=== PATIENT | female | born 1975 | race Caucasian/White ===

== ENCOUNTER 2024-12-03 18:24 | Emergency (ER) | payer OTHER, SELFPAY ==
[2024-12-03 18:29] VITALS: BP 232/129; PULSE 78; RESP 18; TEMP 36.6; O2SAT 100; BMI 48.5
[2024-12-03 19:15] VITALS: PULSE 99; O2SAT 98
[2024-12-03 19:21] VITALS: BP 190/88; PULSE 96; O2SAT 97
[2024-12-03 19:39] VITALS: BP 197/80; PULSE 102; O2SAT 99
--- NOTE | 2024-12-03 19:49 | [facility].EDGENADL ---
Discharge Plan Disposition Chief Complaint: Eye Problems Referrals Follow up/Referrals: Joyce Nagel APRN [Primary Care Provider] - See instructions Activity Restrictions/Add. Instructions Additional Instructions/Restrictions: At this time it was felt you are safe to be discharged home. If new or worsening symptoms please do not hesitate to return the emergency department. Please apply the erythromycin ointment twice a day to your eyes as discussed for 5 days. Please call and schedule appoint with my eye care later this week with Dr. Kay to ensure things are headed in the right direction. As discussed for your blood pressure please follow-up with your family doctor this week as you will need blood pressure medicine very likely to get it to a more acceptable range but we did not need to work you up today. Clinical Impressions Clinical Impression: Corneal abrasion, Asymptomatic hypertension Print Language Print Language: Ch[place] Discharge ED Provider: Bert Hernandes General Adult HPI General Chief complaint: Eye Problems Stated complaint: AO 12/03/24 1400 scratch left eye Time Seen by Provider: 12/03/24 19:10 Mode of Arrival: Ambulatory Source of Information: Patient Description of Symptoms (Recalled from ER Triage Doc. by RN): Pt presents for evaluation of left eye injury. Pt states her grandson scratched her eye History of Present Illness HPI narrative: Patient is a 49-year-old female who does not have corrective vision who presents emergency department for evaluation of a scratched her left eye. Onset was acute just prior to arrival by a toddler. Left eye. No other acute complaints at this time. Please note that above description of symptoms, in this electronic medical record under categorization of recalled from ER triage doctor by RN are reflective of an initial nursing assessment, however, is not reflective of my full history and physical exam that was personally taken and clarified. Consequentially, this preceding description of symptoms, which may include the patient's categorized chief complaint in the EMR, do not reflect my personal clinical impression, and the ultimate description of history of present illness and patient stated complaints should be deferred to this section of the note. Unless stated otherwise or congruent with this section of the note, additional signs, symptoms, or incongruence should be interpreted as inaccurate with my clinical impression. [facility] Disclaimer: The information contained in this section may have been updated after the patient was seen, as this information can be updated by other users. Social History Smoking Status: Never smoker alcohol intake: never current occupational status: other Travel in the last 8 weeks: None ROS Obtained: Yes Systems reviewed as appropriate & no additional complaints except as documented Physical Exam General General appearance: alert and in no apparent distress Head Head exam: atraumatic and normocephalic Eye Eye exam: Present PERRL and EOMI ENT ENT exam: Present mucous membranes moist Neck Neck exam: Present normal inspection Chest Chest inspection: Present symmetric chest wall rise Respiratory Respiratory exam: Present normal lung sounds bilaterally; Absent respiratory distress Cardiovascular Cardiovascular exam: Present regular rate and normal rhythm Extremities Exam Extremities exam: Present normal inspection Neurological Exam Neurological exam: Present alert Psychiatric Psychiatric exam: Present normal affect Skin Skin exam: Present warm and dry Medical Decision Making Medical Records Screening: Per USPSTF and CDC recommendations, given the prevalence of disease in our region, it is our hospital?s policy to screen for HIV and viral Hepatitis for all patients aged 18 and over and those with ongoing risk factors. Tod Inquiry Pt receiving controlled substance: No Vital Signs: 12/03/24 18:29 Temperature 98 F Temperature Source Oral Pulse Rate [Right] 78 Respiratory Rate 18 Blood Pressure [Right Arm] 232/129 H Blood Pressure Mean [Right Arm] 163 Blood Pressure Source [Right Arm] Automatic Cuff Blood Pressure Position [Right Arm] Sitting 02 Sat by Pulse Oximetry 100 Oxygen Delivery Method Room Air Medical Decision Narrative: In summary patient is a 49-year-old female past medical history described above presents emerged part for evaluation of left-sided ocular trauma from a scratch from a toddler. Patient is hemodynamically stable and nontoxic upon arrival. Fluorescein Wood's lamp exam consistent with corneal abrasion over 9-10 o'clock. Alexandr negative. No concern for corneal laceration. Patient was discharged with erythromycin ointment and will follow-up with Dr. Kay on an outpatient basis. Of note patient had blood pressures systolic that were in the 200s originally but spontaneously resolved to the 190s. Patient is asymptomatic. Therefore it was recommended that she receive urgent outpatient evaluation this week but does not require any emergent intervention at this time or workup. Procedure: Procedure performed by Bert Hernandes with Liu lamp fluorescein exam. Procedure facilitated by tetracaine. Anesthesia achieved. Fluorescein was administered into the eye and uptake was noted at 9-10 o'clock. Alexandr negative. No retained foreign body. Patient tolerated procedure well. There were no immediate complications. Critical Care Critical Care Time Critical Care Time: No
[2024-12-03 19:57] VITALS: BP 197/80; PULSE 92; RESP 14; TEMP 36.7; O2SAT 97
== END 2024-12-03 19:59 | disposition home or self-care (01) ==
PROVIDERS: Emergency Provider Emergency Medicine; PCP Nurse Practitioner
DX: S05.00XA Injury of conjunctiva and corneal abrasion without foreign body, unspecified eye, initial encounter (principal); H57.12 Ocular pain, left eye; I10 Essential (primary) hypertension; X58.XXXA Exposure to other specified factors, initial encounter; Y93.89 Activity, other specified; Y92.9 Unspecified place or not applicable
CPT/HCPCS: 99282